=== PATIENT | female | born 1950 | race Caucasian/White ===

== ENCOUNTER 2017-04-03 00:46 | Emergency (ER) | payer MEDICARE, SELFPAY ==
[2017-04-03 00:48] VITALS: BP 154/78; PULSE 72; RESP 18; TEMP 36.5; O2SAT 98; BMI 22.4
--- NOTE | 2017-04-03 01:08 | ED.DCSUM_ITS ---
- ER Visit Summary Date of Service: 04/03/17 Chief Complaint: Allergic reaction History of Present Illness: The patient is a 66 F was eating cashews as a snack tonight, they tasted normal initially but then started tasting metallic. Within about 20 minutes, she developed itchy red rash on her right lower abdominal wall, and shortly thereafter started feeling flushed and shaky as she has when she has had anaphylaxis from beestings. She has an EpiPen because of that history, so she used it and shortly thereafter felt much better and felt all of her symptoms resolved. She use the EpiPen about 1 hour prior to evaluation in the ER. She feels back to normal at this time. She denies having had any shortness of breath, edema, or angioedema symptoms. Physical Examination: Well-appearing in no distress. Normal vital signs except for mild hypertension 154/78. Lungs are clear to auscultation throughout, no edema in her hands or feet. No edema of the lips or tongue. Pupils are 4 mm and reactive bilaterally. Normal neurologic exam, keenly alert. Test Results: n/a Emergency Department Course and Treatment: Patient was observed for an additional hour. She remained asymptomatic. She was given prednisone 40 mg. Will prescribe her an additional 2 days and recommend she avoid cashews in the future as this was probably the cause. Treatment Plan: As above Disposition: Discharge home Impression: Acute anaphylactoid reaction to food ingestion This note was generated with [employer] dictation software. It may contain incorrect words, spelling, and punctuation that were not noted in review of the chart prior to signing ED Disposition - Plan for ED Patient: Disposition: Home or Assisted Living Chief Complaint: Allergic Reaction Instructions: ED Allergic Reaction General Other Prescriptions: Epinephrine [Epi Pen] 0.3 mg IM X1 PRN #1 syringe PRN Reason: Anaphylaxis Prednisone [Deltasone] 40 mg PO QHS #4 tab Referrals: Carlito Barreto [Primary Care Provider] - As Needed
[2017-04-03 02:12] VITALS: BP 131/64; PULSE 70; RESP 18; O2SAT 96
== END 2017-04-03 02:14 | disposition home or self-care (01) ==
PROVIDERS: Emergency Provider Emergency Medicine; Family Provider Student in an Organized Health Care Education/Training Program; PCP Student in an Organized Health Care Education/Training Program
DX: T78.05XA Anaphylactic reaction due to tree nuts and seeds, initial encounter (principal); Z91.030 Bee allergy status
CPT/HCPCS: 99282

== ENCOUNTER 2017-11-10 20:19 | Emergency (ER) | payer MEDICARE, SELFPAY ==
[2017-11-10 20:20] VITALS: BP 139/76; PULSE 69; RESP 16; TEMP 36.2; O2SAT 99; BMI 21.7
--- NOTE | 2017-11-10 20:26 | EKG12_ITS ---
Test Reason : CHEST PAIN Blood Pressure : / mmHG Vent. Rate : 061 BPM Atrial Rate : 061 BPM P-R Int : 156 ms QRS Dur : 082 ms QT Int : 402 ms P-R-T Axes : 059 043 068 degrees QTc Int : 404 ms Normal sinus rhythm Normal ECG Confirmed by MIKHAIL OSBORN, MANNIE ([id number]), scientific publications editor SAMARIA GRAHAM ([id number] on 11/14/2017 8:54:21 AM Referred By: NAZARIO/SHANNA Confirmed By:MANNIE ELIZONDO MD
[2017-11-10 20:33] VITALS: BP 154/69; PULSE 62; RESP 13; O2SAT 98
--- NOTE | 2017-11-10 20:45 | RAD_ITS ---
STUDY: X-RAY CHEST REASON FOR EXAM: Female, 67 years old. Chest pressure/pain. TECHNIQUE: Single frontal view of the chest. COMPARISON: None. FINDINGS: The lungs are hyperexpanded. There is no demonstrated pleural abnormality. There is borderline cardiomegaly. Normal mediastinum and víctor. Normal visualized pulmonary arteries. Normal visualized aortic arch and descending thoracic aorta. Normal visualized thoracic spine. Normal visualized ribs, clavicles, and shoulders. There is no demonstrated abnormality of the visualized soft tissue structures of the upper abdomen. RAD/Chest 1 View (Portable) IMPRESSION: Borderline cardiomegaly with hyperexpansion. No acute pathology. Electronically Signed: Gage Anderson MD at 21:32 EDT , Service support ,
[2017-11-10 21:19] LABS: Absolute Lymphocyte Count 2.16 X10^3/ul (0.83-4.51); Absolute Neutrophil Count 5.3 X10^3/uL (2.0-7.7); Eosinophil# 0.06 X10^3/uL; Eosinophils% 0.7 % (0-5); Lymphocyte # 2.16 X10^3/ul (4.0); Lymphocyte % 26.5 % (19-41); Mean Corp Hgb Conc 34.1 g/gl (32-36); Mean Corpuscular Hgb 30.8 pg (27.0-32.0); Mean Corpuscular Volume 90.3 fL (81-99); Mean Platelet Vol. 9.9 fl (6.2-12.0); Monocyte# 0.59 X10^3/uL; Monocyte% 7.2 % (0-10); Neutrophil # 5.33 X10^3/uL (2.7-7.7); Neutrophil % 65.5 % (47-70); Platelet Count 292 K/mm3 (150-450); RBC Distribution Width CV 13.6 % (11.6-14.6); RBC Distribution Width SD 44.6 fl (35.1-43.9); Red Blood Count 4.54 M/mm3 (4.2-5.4); White Blood Count 8.2 K/mm3 (4.4-11.0)
[2017-11-10 21:20] LABS: POSITIVE COUNT NO; POSITIVE DIFFERENTIAL NO; POSITIVE MORPHOLOGY NO
[2017-11-10 21:37] LABS: Anion Gap 7 (5-15); BUN 20 mg/dL (7-18); BUN/Creat Ratio 23.1 RATIO (10-20); Calcium,Total 9.2 mg/dL (8.5-10.1); Chloride 104 mmol/L (98-107); Creatinine, Serum 0.87 mg/dL (0.55-1.02); EST Glomerular Filtration Rate 69 mL/min (>60); Est Glom Filt Rate - Afr Amer 84 mL/min (>60); Estimated Creatinine Clearance 51.91 ml/min; Glucose 108 mg/dL (74-106); Potassium 4.4 mmol/L (3.5-5.1); Sodium Level 139 mmol/L (136-145)
[2017-11-10 22:29] VITALS: BP 123/53; PULSE 54; RESP 14; O2SAT 96
[2017-11-10 23:25] VITALS: BP 126/53; PULSE 54; RESP 20; O2SAT 96
--- NOTE | 2017-11-10 23:46 | ED.VISSUMM ---
- ER Visit Summary Date of Service: 11/10/17 Chief Complaint: Chest pain History of Present Illness: The patient is a 67 F with a brief episode of chest pain that resolved upon arrival now it is 1 out of 10 and then on repeat evaluation of 0 out of 10 and started in the back and moved to the front associate with some palpitations and now it is gone. She has no cardiac history she has no hypertension diabetes hypercholesterolemia no family history and she has never smoked. Physical Examination: Not appear in acute distress. Moist mucous membranes, no obvious facial deformity No C-spine tenderness supple neck. Regular rate and rhythm without any obvious murmurs Clear lungs bilaterally speaking in full sentences without any obvious respiratory distress Abdomen soft and nontender no guarding or rebound Moves all extremities without any difficulty or pain. Skin does not show any obvious rashes or lesions, no trauma. Alert oriented ?3 with no gross focal deficit Emergency Department Course and Treatment: Patient has a heart score of 2 for her age otherwise she has a normal EKG negative troponin and unremarkable workup should be discharged with reassurance and follow-up with PCP if things worsen she needs to return. Discharge stable condition Impression: [Chest pain] This note was generated with [employer] dictation software. It may contain incorrect words, spelling, and punctuation that were not noted in review of the chart prior to signing ED Disposition - Plan for ED Patient: Disposition: Home or Assisted Living Chief Complaint: Chest Pain Instructions: ED Chest Pain Atypical Unkn Cause Referrals: Carlito Barreto [Primary Care Provider] - 3-5 Days
[2017-11-11 00:02] VITALS: BP 133/69; PULSE 57; RESP 14; O2SAT 97
== END 2017-11-11 00:03 | disposition home or self-care (01) ==
PROVIDERS: Emergency Provider Emergency Medicine; Family Provider Student in an Organized Health Care Education/Training Program; PCP Student in an Organized Health Care Education/Training Program
DX: R07.9 Chest pain, unspecified (principal); M54.9 Dorsalgia, unspecified; R00.2 Palpitations
CPT/HCPCS: 71045; 80048; 84484; 85025; 93005; 99284; A4216

== ENCOUNTER → 2019-10-01 11:20 | Outpatient (CLI) | payer MEDICARE, SELFPAY | PROVIDERS: PCP Student in an Organized Health Care Education/Training Program; Referring Provider Family Medicine; Visit Provider Family Medicine | DX: Z11.59 Encounter for screening for other viral diseases (principal) | CPT/HCPCS: 87635; 94799; U0003 ==